=== PATIENT | female | born 1970 | race Caucasian/White ===

== ENCOUNTER → 2016-05-13 | Outpatient (CLI) | payer BC ==
[~2016-05-13] MED LIST: AMBIEN5 MG PO; CYCLOBENZAPRINE5 MG PO; IBUPROFEN800 MG PO; JOLESSA 0.15 M1 EACH PO; KEFLEX500 MG PO; NORCO 10-325 T1 EACH PO; OMEPRAZOLE40 MG PO; PROVENTIL HFA 61 INH INH; VITAMIN C 500500 MG PO; VITAMIN D350000 UNIT PO; ZOFRAN4 MG PO
== END ==
LOC: KOH-I 15:20
DX: M79.672 Pain in left foot (principal)
CPT/HCPCS: 73700

== ENCOUNTER → 2016-06-16 | Outpatient (CLI) | payer BC | LOC: KOH-I 15:06 | DX: M79.672 Pain in left foot (principal) | CPT/HCPCS: 73718 ==

== ENCOUNTER → 2021-10-21 | Outpatient (CLI) | payer BC | LOC: KOH-I 15:16 | DX: M79.671 Pain in right foot (principal); M79.672 Pain in left foot | CPT/HCPCS: 73630 ==